=== PATIENT | male | born 1950 | race Caucasian/White ===

== ENCOUNTER 2017-08-17 07:52 | Inpatient (IN) | payer MEDICARE, OTHER ==
[~2017-08-17] VITALS: Ht 177.8 cm; Wt 107.2 kg
[2017-08-17] MEDS ORDERED: morphine SULFATE 10 MG/ML, 1ML ONE ×2 (08:19→09:40)
[2017-08-17] MEDS ORDERED: ONDANSETRON 2MG/ML, 2ML ONE (08:20)
[2017-08-17] MEDS ORDERED: FENTANYL PF 100 MCG/2ML ONE (08:20)
[2017-08-17] MEDS ORDERED: SODIUM CHLORIDE FLUSH 10ML SYR IVF ONE (08:30)
[2017-08-17] MEDS ORDERED: ONDANSETRON 2MG/ML, 2ML IVPush ONE (08:30)
[2017-08-17] MEDS ORDERED: FENTANYL PF 100 MCG/2ML IV ONE (08:30)
[2017-08-17] MEDS: MORPHINE SULFATE 4 MG/ML, 1ML IVPush PRN ×2 (08:59→09:43)
[2017-08-17] MEDS ORDERED: HYDROmorphone 1 MG/ML, 1ML IV ONE (10:30)
[2017-08-17] MEDS ORDERED: SODIUM CHLORIDE FLUSH 10ML SYR IVF PRN (12:00)
[2017-08-17] MEDS ORDERED: ONDANSETRON 2MG/ML, 2ML IVPush PRN ×2 (12:00→13:30)
[2017-08-17] MEDS ORDERED: HYDROmorphone 1 MG/ML, 1ML IVPush PRN (12:00)
[2017-08-17 12:38] VITALS: BP 132/82
[2017-08-17] MEDS ORDERED: ENOXAPARIN 40 MG/0.4 ML SQ SCH (13:30)
[2017-08-17] MEDS ORDERED: TEMAZEPAM 15 MG CAPSULE PO PRN (13:30)
[2017-08-17] MEDS ORDERED: hydrALAzine 20 MG/ML, 1ML IVPush PRN (13:30)
[2017-08-17] MEDS ORDERED: POLYETHYLENE GLYCOL 17 GM PACKET PO PRN (13:30)
[2017-08-17] MEDS ORDERED: morphine SULFATE 10 MG/ML, 1ML IVPush PRN (13:30)
[2017-08-17 14:46] LABS: BLOOD UREA NITROGEN 12 mg/dL (7-18)
[2017-08-17 14:48] LABS: HEMATOCRIT 39.1 % (39.2-51.8); HEMOGLOBIN 13.1 g/dL (13.7-18.0); WHITE BLOOD COUNT 7.3 x10^3/uL (3.4-10)
[2017-08-17 14:54] LABS: ASPARTATE AMINO TRANSFERASE 41 U/L (15-37)
[2017-08-17] MEDS ORDERED: PROMETHAZINE 25 MG/ML, 1ML IM ONE (19:00)
[2017-08-17] MEDS: OXYcodone IR 5MG TABLET PO PRN (19:57)
[2017-08-17 20:03] VITALS: BP 137/83
[2017-08-17] MEDS: RIFAXIMIN 550 MG TABLET PO SCH (21:00)
[2017-08-17] MEDS: MAGNESIUM OXIDE 400 MG TABLET PO SCH (21:00)
[2017-08-18] MEDS: OXYcodone IR 5MG TABLET PO PRN ×5 (01:08→20:39)
[2017-08-18 02:37] VITALS: BP 107/57
[2017-08-18] MEDS: PROPRANOLOL 20 MG TABLET PO SCH (06:23)
[2017-08-18] MEDS: CHOLECALCIFEROL 1,000 UNIT TABLET PO SCH (08:08)
[2017-08-18] MEDS: THIAMINE 100MG TABLET PO SCH (08:08)
[2017-08-18] MEDS: MULTIVITAMIN 1 TABLET PO SCH (08:08)
[2017-08-18] MEDS: FLUOXETINE 10 MG CAP PO SCH (08:08)
[2017-08-18] MEDS: FOLIC ACID 1 MG TABLET PO SCH (08:08)
[2017-08-18] MEDS: RIFAXIMIN 550 MG TABLET PO SCH ×2 (08:08→20:22)
[2017-08-18] MEDS: MAGNESIUM OXIDE 400 MG TABLET PO SCH ×2 (08:08→20:22)
[2017-08-18] MEDS: PANTOPROZOLE 40MG TABLET PO SCH (08:09)
[2017-08-18] MEDS: FUROSEMIDE 40 MG TABLET PO SCH (08:09)
[2017-08-18] MEDS: SPIRONOLACTONE 100 MG TABLET PO SCH (08:09)
[2017-08-18 08:17] VITALS: BP 105/59
[2017-08-18] MEDS ORDERED: LACTULOSE 20 GM/30 ML UDC PO PRN (12:00)
[2017-08-18 14:50] VITALS: BP 119/73
[2017-08-18 20:56] VITALS: BP 113/74
[2017-08-19 03:21] VITALS: BP 114/68
[2017-08-19] MEDS: OXYcodone IR 5MG TABLET PO PRN ×2 (05:54→11:31)
[2017-08-19 06:08] LABS: BLOOD UREA NITROGEN 22 mg/dL (7-18)
[2017-08-19] MEDS: PROPRANOLOL 20 MG TABLET PO SCH (06:50)
[2017-08-19] MEDS: RIFAXIMIN 550 MG TABLET PO SCH (09:04)
[2017-08-19] MEDS: CHOLECALCIFEROL 1,000 UNIT TABLET PO SCH (09:04)
[2017-08-19] MEDS: THIAMINE 100MG TABLET PO SCH (09:04)
[2017-08-19] MEDS: MAGNESIUM OXIDE 400 MG TABLET PO SCH (09:04)
[2017-08-19] MEDS: MULTIVITAMIN 1 TABLET PO SCH (09:04)
[2017-08-19] MEDS: SPIRONOLACTONE 100 MG TABLET PO SCH (09:05)
[2017-08-19] MEDS: FLUOXETINE 10 MG CAP PO SCH (09:05)
[2017-08-19] MEDS: FUROSEMIDE 40 MG TABLET PO SCH (09:05)
[2017-08-19] MEDS: PANTOPROZOLE 40MG TABLET PO SCH (09:06)
[2017-08-19] MEDS: FOLIC ACID 1 MG TABLET PO SCH (09:06)
[2017-08-19 09:21] VITALS: BP 103/67
[2017-08-19] MEDS ORDERED: CHOL10003 PO (10:01)
[2017-08-19] MEDS ORDERED: RIFA550T4 PO (10:13)
[2017-08-19] MEDS ORDERED: FOLI-17 PO (10:13)
[2017-08-19] MEDS ORDERED: PROP20TA PO (10:13)
[2017-08-19] MEDS ORDERED: OXYC5TAB3 PO (10:13)
[2017-08-19] MEDS ORDERED: SPIR100T PO (10:13)
[2017-08-19] MEDS ORDERED: PANT40TA5 PO (10:13)
[2017-08-19] MEDS ORDERED: THIA100T6 PO (10:13)
[2017-08-19] MEDS ORDERED: MAGN400T26 PO (10:13)
[2017-08-19] MEDS ORDERED: TRAM50TA2 PO (10:13)
[2017-08-19] MEDS ORDERED: FURO40TA6 PO (10:13)
[2017-08-19] MEDS ORDERED: FLUO10CA7 PO (10:13)
[2017-08-19] MEDS ORDERED: LACT20SO13 PO (10:13)
[2017-08-19] MEDS ORDERED: MULT1TAB60 PO (10:13)
[2017-08-19] MEDS ORDERED: ERGO2000 PO (10:14)
[2017-08-19 13:56] VITALS: BP 109/68
== END 2017-08-19 14:32 | disposition home or self-care (01) | DRG 562 ==
LOC: ED 08:56 → EDIP 11:38 → 4NOR 12:30 → DCLOUNGE 08-19 14:10
PROVIDERS: ADMIT Hospitalist; ATTEND Internal Medicine
DX: S42.211A Unspecified displaced fracture of surgical neck of right humerus, initial encounter for closed fracture (principal); E43 Unspecified severe protein-calorie malnutrition; R71.0 Precipitous drop in hematocrit; K70.30 Alcoholic cirrhosis of liver without ascites
CPT/HCPCS: 36415; 80048; 80053; 84439; 84443; 85025; 96374; 96375; 96376; J2405; J2550; J3010

== ENCOUNTER 2017-08-28 06:38 | Emergency (ER) | payer MEDICARE, OTHER ==
[~2017-08-28] VITALS: Ht 177.8 cm; Wt 100.8 kg
[~2017-08-28 06:38] MED LIST: CHOL10003 PO; ERGO2000 PO; FLUO10CA7 PO; FOLI-17 PO; FURO40TA6 PO; LACT20SO13 PO; MAGN400T26 PO; MULT1TAB60 PO; OXYC5TAB3 PO; PANT40TA5 PO; PROP20TA PO; RIFA550T4 PO; SPIR100T PO; THIA100T6 PO; TRAM50TA2 PO
[2017-08-28] MEDS ORDERED: KETOROLAC 30 MG/1 ML ONE (06:53)
[2017-08-28] MEDS ORDERED: KETOROLAC 30 MG/1 ML IVPush ONE (07:00)
[2017-08-28 08:42] VITALS: BP 135/81
== END 2017-08-28 08:47 | disposition home or self-care (01) ==
LOC: ED 07:34
DX: S42.201A Unspecified fracture of upper end of right humerus, initial encounter for closed fracture (principal); S16.1XXA Strain of muscle, fascia and tendon at neck level, initial encounter; M47.892 Other spondylosis, cervical region; W19.XXXA Unspecified fall, initial encounter; Y93.89 Activity, other specified; Y92.009 Unspecified place in unspecified non-institutional (private) residence as the place of occurrence of the external cause; Y99.9 Unspecified external cause status
CPT/HCPCS: 72125; 73060; 96374; 99284; J1885

== ENCOUNTER 2017-08-29 06:38 | Inpatient (IN) | payer OTHER ==
[~2017-08-29] VITALS: Ht 177.8 cm; Wt 123.2 kg
[2017-08-29] MEDS ORDERED: SODIUM CHLORIDE FLUSH 10ML SYR IVF ONE (07:00)
[2017-08-29] MEDS ORDERED: ONDANSETRON 2MG/ML, 2ML IVPush ONE (07:00)
[2017-08-29] MEDS ORDERED: HYDROmorphone 1 MG/ML, 1ML ONE (07:18)
[2017-08-29] MEDS ORDERED: ONDANSETRON 2MG/ML, 2ML ONE (07:18)
[2017-08-29] MEDS: HYDROmorphone 1 MG/ML, 1ML IVPush PRN ×2 (07:37→09:07)
[2017-08-29 07:57] LABS: BLOOD UREA NITROGEN 18 mg/dL (7-18); HEMATOCRIT 34.2 % (39.2-51.8); HEMOGLOBIN 11.8 g/dL (13.7-18.0); WHITE BLOOD COUNT 9.4 x10^3/uL (3.4-10)
[2017-08-29] MEDS ORDERED: HYDROmorphone 1 MG/ML, 1ML IVPush PRN (10:00)
[2017-08-29] MEDS ORDERED: SODIUM CHLORIDE FLUSH 10ML SYR IVF PRN (10:00)
[2017-08-29] MEDS ORDERED: ONDANSETRON 2MG/ML, 2ML IVPush PRN ×2 (10:00→11:30)
[2017-08-29 10:45] VITALS: BP 98/60
[2017-08-29] MEDS: OXYcodone IR 5MG TABLET PO PRN ×3 (11:58→20:19)
[2017-08-29] MEDS: SODIUM CHLORIDE 0.9% 1,000 ML IV SCH ×2 (11:58→18:35)
[2017-08-29 13:26] VITALS: BP 122/67
[2017-08-29] MEDS: LACTULOSE 20 GM/30 ML UDC PO PRN (15:58)
[2017-08-29 18:55] VITALS: BP 106/65
[2017-08-29] MEDS: RIFAXIMIN 550 MG TABLET PO SCH (20:19)
[2017-08-29] MEDS: MAGNESIUM OXIDE 400 MG TABLET PO SCH (20:20)
[2017-08-29] MEDS: ENOXAPARIN 40 MG/0.4 ML SQ SCH (20:22)
[2017-08-30 01:46] VITALS: BP 110/68
[2017-08-30] MEDS: SODIUM CHLORIDE 0.9% 1,000 ML IV SCH (03:35)
[2017-08-30 05:00] LABS: BLOOD UREA NITROGEN 20 mg/dL (7-18)
[2017-08-30] MEDS: OXYcodone IR 5MG TABLET PO PRN ×4 (05:58→23:04)
[2017-08-30] MEDS: PROPRANOLOL 20 MG TABLET PO SCH (05:59)
[2017-08-30] MEDS: SPIRONOLACTONE 100 MG TABLET PO SCH (07:49)
[2017-08-30] MEDS: PANTOPROZOLE 40MG TABLET PO SCH (07:49)
[2017-08-30] MEDS: FLUOXETINE 10 MG CAP PO SCH (07:50)
[2017-08-30] MEDS: RIFAXIMIN 550 MG TABLET PO SCH ×2 (07:50→21:26)
[2017-08-30] MEDS: MAGNESIUM OXIDE 400 MG TABLET PO SCH ×2 (07:50→21:26)
[2017-08-30 08:22] VITALS: BP 100/64
[2017-08-30] MEDS ORDERED: SODIUM CHLORIDE 0.9% 1,000 ML IV SCH (11:29)
[2017-08-30] MEDS ORDERED: MAGNESIUM SULFATE PMX 2GM/50ML 50 ML IV ONE (11:30)
[2017-08-30] MEDS: LACTULOSE 20 GM/30 ML UDC PO PRN (11:59)
[2017-08-30 15:07] VITALS: BP 145/66
[2017-08-30 19:53] VITALS: BP 99/63
[2017-08-30] MEDS: ENOXAPARIN 40 MG/0.4 ML SQ SCH (21:26)
[2017-08-31 02:17] VITALS: BP 91/51
[2017-08-31] MEDS: PROPRANOLOL 20 MG TABLET PO SCH (04:45)
[2017-08-31 06:15] LABS: BLOOD UREA NITROGEN 16 mg/dL (7-18)
[2017-08-31 07:25] VITALS: BP 114/73
[2017-08-31] MEDS: OXYcodone IR 5MG TABLET PO PRN ×2 (07:34→15:54)
[2017-08-31] MEDS: RIFAXIMIN 550 MG TABLET PO SCH ×2 (07:35→21:45)
[2017-08-31] MEDS: MAGNESIUM OXIDE 400 MG TABLET PO SCH ×2 (07:35→21:44)
[2017-08-31] MEDS: FLUOXETINE 10 MG CAP PO SCH (07:35)
[2017-08-31] MEDS: PANTOPROZOLE 40MG TABLET PO SCH (07:35)
[2017-08-31] MEDS: SPIRONOLACTONE 100 MG TABLET PO SCH (07:35)
[2017-08-31] MEDS: SODIUM CHLORIDE 0.9% 1,000 ML IV SCH ×2 (11:16→19:40)
[2017-08-31 13:27] VITALS: BP 159/74
[2017-08-31] MEDS: LACTULOSE 20 GM/30 ML UDC PO SCH ×2 (16:28→21:44)
[2017-08-31 19:58] VITALS: BP 115/73
[2017-08-31] MEDS: ENOXAPARIN 40 MG/0.4 ML SQ SCH (21:45)
[2017-09-01] MEDS: OXYcodone IR 5MG TABLET PO PRN ×4 (00:22→17:39)
[2017-09-01 02:34] VITALS: BP 110/69
[2017-09-01] MEDS: PROPRANOLOL 20 MG TABLET PO SCH (05:53)
[2017-09-01 07:00] VITALS: BP 108/73
[2017-09-01] MEDS: SODIUM CHLORIDE 0.9% 1,000 ML IV SCH ×2 (09:00→17:30)
[2017-09-01] MEDS: SPIRONOLACTONE 100 MG TABLET PO SCH (10:08)
[2017-09-01] MEDS: FLUOXETINE 10 MG CAP PO SCH (10:08)
[2017-09-01] MEDS: LACTULOSE 20 GM/30 ML UDC PO SCH ×2 (10:08→20:16)
[2017-09-01] MEDS: RIFAXIMIN 550 MG TABLET PO SCH ×2 (10:08→20:16)
[2017-09-01] MEDS: PANTOPROZOLE 40MG TABLET PO SCH (10:08)
[2017-09-01] MEDS: MAGNESIUM OXIDE 400 MG TABLET PO SCH ×2 (10:09→20:16)
[2017-09-01 13:44] VITALS: BP 110/69
[2017-09-01 20:04] VITALS: BP 129/84
[2017-09-01] MEDS: ENOXAPARIN 40 MG/0.4 ML SQ SCH (20:17)
[2017-09-02] MEDS: OXYcodone IR 5MG TABLET PO PRN ×2 (00:42→06:13)
[2017-09-02] MEDS: SODIUM CHLORIDE 0.9% 1,000 ML IV SCH ×3 (00:51→17:14)
[2017-09-02 01:40] VITALS: BP 108/70
[2017-09-02] MEDS: PROPRANOLOL 20 MG TABLET PO SCH (06:12)
[2017-09-02] MEDS: PANTOPROZOLE 40MG TABLET PO SCH (07:30)
[2017-09-02 07:38] VITALS: BP 106/64
[2017-09-02] MEDS: LACTULOSE 20 GM/30 ML UDC PO SCH ×2 (11:09→20:50)
[2017-09-02] MEDS: SPIRONOLACTONE 100 MG TABLET PO SCH (14:15)
[2017-09-02] MEDS: FLUOXETINE 10 MG CAP PO SCH (14:15)
[2017-09-02] MEDS: RIFAXIMIN 550 MG TABLET PO SCH ×2 (14:15→20:51)
[2017-09-02] MEDS: MAGNESIUM OXIDE 400 MG TABLET PO SCH ×2 (14:15→20:50)
[2017-09-02 14:41] VITALS: BP 107/68
[2017-09-02 20:17] VITALS: BP 93/52
[2017-09-02] MEDS: QUETIAPINE 25MG TABLET PO SCH ×2 (20:50→21:00)
[2017-09-02] MEDS: ENOXAPARIN 40 MG/0.4 ML SQ SCH (20:51)
[2017-09-02] MEDS ORDERED: HALOPERIDOL 5 MG/ML ONE (23:40)
[2017-09-03] MEDS ORDERED: HALOPERIDOL 5 MG/ML IM PRN
[2017-09-03] MEDS: SODIUM CHLORIDE 0.9% 1,000 ML IV SCH ×3 (01:00→23:54)
[2017-09-03] MEDS: PROPRANOLOL 20 MG TABLET PO SCH (06:22)
[2017-09-03 08:10] VITALS: BP 107/67
[2017-09-03] MEDS: LACTULOSE 20 GM/30 ML UDC PO SCH ×3 (08:18→21:39)
[2017-09-03] MEDS: MAGNESIUM OXIDE 400 MG TABLET PO SCH ×2 (08:19→20:18)
[2017-09-03] MEDS: PANTOPROZOLE 40MG TABLET PO SCH (08:21)
[2017-09-03] MEDS: SPIRONOLACTONE 100 MG TABLET PO SCH (08:21)
[2017-09-03] MEDS: FLUOXETINE 10 MG CAP PO SCH (08:21)
[2017-09-03] MEDS: QUETIAPINE 25MG TABLET PO SCH ×2 (13:40→20:18)
[2017-09-03] MEDS: RIFAXIMIN 550 MG TABLET PO SCH ×2 (13:40→20:18)
[2017-09-03 14:02] VITALS: BP 99/62
[2017-09-03] MEDS: ENOXAPARIN 40 MG/0.4 ML SQ SCH (20:19)
[2017-09-03] MEDS ORDERED: ZIPRASIDONE 20 MG INJ IM ONE (20:30)
[2017-09-03] MEDS ORDERED: ZIPRASIDONE 20 MG INJ IM PRN (22:00)
[2017-09-04] MEDS: PROPRANOLOL 20 MG TABLET PO SCH (06:07)
[2017-09-04] MEDS: PANTOPROZOLE 40MG TABLET PO SCH ×2 (07:30→09:16)
[2017-09-04] MEDS: SODIUM CHLORIDE 0.9% 1,000 ML IV SCH ×2 (08:00→16:00)
[2017-09-04] MEDS: RIFAXIMIN 550 MG TABLET PO SCH ×4 (09:00→21:00)
[2017-09-04] MEDS: QUETIAPINE 25MG TABLET PO SCH ×4 (09:00→21:00)
[2017-09-04] MEDS: SPIRONOLACTONE 100 MG TABLET PO SCH (09:16)
[2017-09-04] MEDS: FLUOXETINE 10 MG CAP PO SCH (09:16)
[2017-09-04] MEDS: MAGNESIUM OXIDE 400 MG TABLET PO SCH ×2 (09:16→21:00)
[2017-09-04] MEDS: LACTULOSE 20 GM/30 ML UDC PO SCH ×2 (09:17→21:00)
[2017-09-04 10:35] LABS: ASPARTATE AMINO TRANSFERASE 62 U/L (15-37); BLOOD UREA NITROGEN 10 mg/dL (7-18)
[2017-09-04 14:50] VITALS: BP 109/66
[2017-09-04] MEDS: ENOXAPARIN 40 MG/0.4 ML SQ SCH (21:00)
[2017-09-05] MEDS: PROPRANOLOL 20 MG TABLET PO SCH (05:46)
[2017-09-05] MEDS: PANTOPROZOLE 40MG TABLET PO SCH (07:30)
[2017-09-05] MEDS: SODIUM CHLORIDE 0.9% 1,000 ML IV SCH ×4 (07:41→22:10)
[2017-09-05] MEDS: FLUOXETINE 10 MG CAP PO SCH ×2 (07:44→09:00)
[2017-09-05] MEDS: RIFAXIMIN 550 MG TABLET PO SCH ×2 (07:45→20:17)
[2017-09-05] MEDS: QUETIAPINE 25MG TABLET PO SCH ×2 (07:45→20:17)
[2017-09-05] MEDS: LACTULOSE 20 GM/30 ML UDC PO SCH ×2 (07:45→20:17)
[2017-09-05] MEDS: SPIRONOLACTONE 100 MG TABLET PO SCH (07:45)
[2017-09-05] MEDS: MAGNESIUM OXIDE 400 MG TABLET PO SCH ×2 (07:45→20:17)
[2017-09-05 08:19] VITALS: BP 123/78
[2017-09-05 14:21] VITALS: BP 119/74
[2017-09-05] MEDS: ENOXAPARIN 40 MG/0.4 ML SQ SCH (20:17)
[2017-09-05 21:32] VITALS: BP 144/77
[2017-09-06 02:00] VITALS: BP 124/82
[2017-09-06] MEDS: PROPRANOLOL 20 MG TABLET PO SCH (05:58)
[2017-09-06 07:51] VITALS: BP 130/76
[2017-09-06] MEDS: SODIUM CHLORIDE 0.9% 1,000 ML IV SCH ×2 (08:00→20:21)
[2017-09-06] MEDS: PANTOPROZOLE 40MG TABLET PO SCH (08:22)
[2017-09-06] MEDS: MAGNESIUM OXIDE 400 MG TABLET PO SCH ×2 (08:22→20:21)
[2017-09-06] MEDS: RIFAXIMIN 550 MG TABLET PO SCH ×2 (08:22→20:21)
[2017-09-06] MEDS: LACTULOSE 20 GM/30 ML UDC PO SCH ×2 (08:22→20:21)
[2017-09-06] MEDS: SPIRONOLACTONE 100 MG TABLET PO SCH (08:22)
[2017-09-06] MEDS: QUETIAPINE 25MG TABLET PO SCH ×2 (08:23→20:25)
[2017-09-06] MEDS: FLUOXETINE 10 MG CAP PO SCH (08:23)
[2017-09-06 08:35] LABS: BLOOD UREA NITROGEN 13 mg/dL (7-18)
[2017-09-06 08:40] LABS: ASPARTATE AMINO TRANSFERASE 70 U/L (15-37)
[2017-09-06 14:54] VITALS: BP 118/72
[2017-09-06 19:40] VITALS: BP 131/95
[2017-09-06] MEDS: ENOXAPARIN 40 MG/0.4 ML SQ SCH (20:21)
[2017-09-07] MEDS: SODIUM CHLORIDE 0.9% 1,000 ML IV SCH ×3 (03:35→19:58)
[2017-09-07 05:30] VITALS: BP 93/44
[2017-09-07] MEDS: PROPRANOLOL 20 MG TABLET PO SCH ×2 (05:30→05:37)
[2017-09-07 08:09] VITALS: BP 125/68
[2017-09-07] MEDS: QUETIAPINE 25MG TABLET PO SCH ×2 (08:48→19:58)
[2017-09-07] MEDS: MAGNESIUM OXIDE 400 MG TABLET PO SCH ×2 (09:36→19:58)
[2017-09-07] MEDS: SPIRONOLACTONE 100 MG TABLET PO SCH (09:36)
[2017-09-07] MEDS: FLUOXETINE 10 MG CAP PO SCH (09:37)
[2017-09-07] MEDS: PANTOPROZOLE 40MG TABLET PO SCH (09:37)
[2017-09-07] MEDS: RIFAXIMIN 550 MG TABLET PO SCH ×2 (09:37→19:58)
[2017-09-07] MEDS: LACTULOSE 20 GM/30 ML UDC PO SCH ×2 (09:37→19:58)
[2017-09-07 13:42] VITALS: BP 136/71
[2017-09-07 19:49] VITALS: BP 114/66
[2017-09-07] MEDS: ENOXAPARIN 40 MG/0.4 ML SQ SCH (19:58)
[2017-09-08] MEDS: SODIUM CHLORIDE 0.9% 1,000 ML IV SCH (03:30)
[2017-09-08] MEDS: PROPRANOLOL 20 MG TABLET PO SCH (06:00)
[2017-09-08 07:57] VITALS: BP 117/74
[2017-09-08] MEDS: QUETIAPINE 25MG TABLET PO SCH (10:02)
[2017-09-08] MEDS: MAGNESIUM OXIDE 400 MG TABLET PO SCH (10:06)
[2017-09-08] MEDS: PANTOPROZOLE 40MG TABLET PO SCH (10:06)
[2017-09-08] MEDS: SPIRONOLACTONE 100 MG TABLET PO SCH (10:06)
[2017-09-08] MEDS: LACTULOSE 20 GM/30 ML UDC PO SCH (10:06)
[2017-09-08] MEDS: RIFAXIMIN 550 MG TABLET PO SCH (10:07)
[2017-09-08] MEDS: FLUOXETINE 10 MG CAP PO SCH (10:07)
[2017-09-08] MEDS ORDERED: FUROSEMIDE 80 MG TABLET PO ONE (10:30)
[2017-09-08] MEDS ORDERED: FUROSEMIDE 40 MG/4 ML IV ONE (10:30)
[2017-09-08] MEDS ORDERED: FUROSEMIDE 40 MG TABLET ONE (11:04)
[2017-09-08] MEDS ORDERED: LACT20SO13 PO ×2 (12:49→13:03)
[2017-09-08 14:10] VITALS: BP 120/72
== END 2017-09-08 16:19 | DRG 441 ==
LOC: ED 08:21 → EDIP 09:34 → 3NW 10:53
PROVIDERS: ADMIT Internal Medicine; ATTEND Internal Medicine
DX: K72.90 Hepatic failure, unspecified without coma (principal); N17.0 Acute kidney failure with tubular necrosis; E43 Unspecified severe protein-calorie malnutrition; K70.30 Alcoholic cirrhosis of liver without ascites; K21.9 Gastro-esophageal reflux disease without esophagitis; G89.11 Acute pain due to trauma; Z51.5 Encounter for palliative care; F32.9 Major depressive disorder, single episode, unspecified; M19.90 Unspecified osteoarthritis, unspecified site; M79.601 Pain in right arm; M79.652 Pain in left thigh; R29.6 Repeated falls; Z68.39 Body mass index [BMI] 39.0-39.9, adult; Z91.19 Patient's noncompliance with other medical treatment and regimen
CPT/HCPCS: 36415; 70450; 80048; 80053; 82040; 82140; 83735; 84100; 85025; 85610; 85730; 96374; 96375; 96376; J1170; J1650; J2405; J1630; J3475; J7030

== ENCOUNTER 2017-09-11 23:13 | Inpatient (IN) | payer MEDICARE, OTHER ==
[~2017-09-11] VITALS: Ht 182.9 cm; Wt 106.3 kg
[2017-09-12] MEDS ORDERED: BACLOFEN 10 MG TABLET PO ONE
[2017-09-12 00:27] LABS: HEMATOCRIT 33.7 % (39.2-51.8); HEMOGLOBIN 11.2 g/dL (13.7-18.0)
[2017-09-12 00:37] LABS: ASPARTATE AMINO TRANSFERASE 70 U/L (15-37); BLOOD UREA NITROGEN 26 mg/dL (7-18)
[2017-09-12 00:52] LABS: POLYCHROMASIA 1+
[2017-09-12 00:53] LABS: ROULEAUX 1+
[2017-09-12] MEDS ORDERED: morphine SULFATE 10 MG/ML, 1ML ONE (01:21)
[2017-09-12] MEDS ORDERED: PIPERACILLIN/TAZO/PMX 4.5GM 100 ML IV SCH (01:30)
[2017-09-12] MEDS ORDERED: morphine SULFATE 10 MG/ML, 1ML IVPush ONE (01:30)
[2017-09-12] MEDS ORDERED: SODIUM CHLORIDE 0.9% 1,000 ML IV SCH (02:46)
[2017-09-12] MEDS ORDERED: hydrALAzine 20 MG/ML, 1ML IVPush PRN (03:00)
[2017-09-12] MEDS: LACTULOSE 10 GM/15 ML UDC PO SCH ×4 (03:00→22:45)
[2017-09-12] MEDS ORDERED: LORazepam 2 MG/ML, 1ML IVPush PRN (03:00)
[2017-09-12] MEDS ORDERED: ACETAMINOPHEN 325 MG TABLET PO PRN (03:00)
[2017-09-12 03:56] VITALS: BP 111/65
[2017-09-12 06:00] VITALS: BP 106/53
[2017-09-12] MEDS: ALBUTEROL SULFATE 2.5 MG/3 ML NPPB PRN (06:17)
[2017-09-12] MEDS: ENOXAPARIN 40 MG/0.4 ML SQ SCH (06:21)
[2017-09-12] MEDS: PIPERACILLIN/TAZO/PMX 3.375GM 50 ML IV SCH ×4 (06:36→20:25)
[2017-09-12 07:36] LABS: ABG COLLECTION SITE LEFT BRACHIAL
[2017-09-12] MEDS: PROPRANOLOL 20 MG TABLET PO SCH (08:00)
[2017-09-12] MEDS ORDERED: BUMETANIDE 0.25 MG/ML, 4ML IV SCH (08:00)
[2017-09-12 08:01] VITALS: BP 98/56
[2017-09-12] MEDS: MULTIVITAMIN 1 TABLET PO SCH (09:00)
[2017-09-12] MEDS: THIAMINE 100MG TABLET PO SCH (09:00)
[2017-09-12] MEDS: FOLIC ACID 1 MG TABLET PO SCH (09:00)
[2017-09-12] MEDS: SPIRONOLACTONE 100 MG TABLET PO SCH (09:00)
[2017-09-12] MEDS: MAGNESIUM OXIDE 400 MG TABLET PO SCH ×2 (09:00→20:25)
[2017-09-12] MEDS ORDERED: LIDOCAINE 1%, 20ML ONE (09:14)
[2017-09-12 10:00] LABS: HEMATOCRIT 31.5 % (39.2-51.8); HEMOGLOBIN 10.7 g/dL (13.7-18.0); WHITE BLOOD COUNT 11.2 x10^3/uL (3.4-10)
[2017-09-12] MEDS: ALBUMIN HUMAN 25% 50 ML IV SCH ×2 (10:19→16:28)
[2017-09-12] MEDS: FUROSEMIDE 40 MG/4 ML IV SCH ×2 (12:18→17:20)
[2017-09-12] MEDS: RIFAXIMIN 550 MG TABLET PO SCH ×2 (12:22→20:25)
[2017-09-12] MEDS: MIDODRINE 5 MG TABLET PO SCH ×3 (13:00→20:25)
[2017-09-12 13:03] LABS: BLOOD UREA NITROGEN 30 mg/dL (7-18)
[2017-09-12 13:14] LABS: ASPARTATE AMINO TRANSFERASE 105 U/L (15-37)
[2017-09-12] MEDS: ZIPRASIDONE 20 MG INJ IM PRN ×2 (13:15→20:25)
[2017-09-13] MEDS: ZIPRASIDONE 20 MG INJ IM PRN (00:09)
[2017-09-13] MEDS: ALBUMIN HUMAN 25% 50 ML IV SCH (00:10)
[2017-09-13] MEDS ORDERED: DEXMEDETOMIDINE 200 MCG in SODIUM CHLORIDE 0.9% 48 ML IV PRN (00:30)
[2017-09-13] MEDS ORDERED: LORazepam 2 MG/ML, 1ML ONE (00:36)
[2017-09-13] MEDS ORDERED: LORazepam 2 MG/ML, 1ML IVPush ONE (01:00)
[2017-09-13] MEDS: FUROSEMIDE 40 MG/4 ML IV SCH ×2 (01:26→10:13)
[2017-09-13] MEDS: PIPERACILLIN/TAZO/PMX 3.375GM 50 ML IV SCH ×4 (04:31→21:03)
[2017-09-13] MEDS: ENOXAPARIN 40 MG/0.4 ML SQ SCH (04:31)
[2017-09-13 04:42] VITALS: BP 127/84
[2017-09-13 04:50] LABS: ABG COLLECTION SITE LEFT RADIAL; COLLATERAL CIRCULATION TESTING NORMAL
[2017-09-13 05:04] LABS: ASPARTATE AMINO TRANSFERASE 53 U/L (15-37); BLOOD UREA NITROGEN 31 mg/dL (7-18)
[2017-09-13 05:11] LABS: HEMATOCRIT 30.9 % (39.2-51.8); HEMOGLOBIN 10.3 g/dL (13.7-18.0); WHITE BLOOD COUNT 10.8 x10^3/uL (3.4-10)
[2017-09-13] MEDS: PROPRANOLOL 20 MG TABLET PO SCH (06:00)
[2017-09-13] MEDS: LACTULOSE 10 GM/15 ML UDC PO SCH ×3 (09:00→21:00)
[2017-09-13] MEDS: ALBUTEROL SULFATE 2.5 MG/3 ML NPPB PRN (09:13)
[2017-09-13] MEDS ORDERED: ALBUTEROL/IPRATROPIUM 2.5MG/0.5MG, 3 ML ONE (09:41)
[2017-09-13] MEDS ORDERED: SENNOSIDES 8.8 MG/5 ML ORAL SOL NG PRN (10:00)
[2017-09-13] MEDS ORDERED: PHARMACY MAY ADJ FOR RENAL FX MC SCH (10:00)
[2017-09-13] MEDS ORDERED: BISACODYL 10 MG SUPP PR PRN (10:00)
[2017-09-13] MEDS ORDERED: SENNA/DOCUSATE TABLET NG PRN (10:00)
[2017-09-13] MEDS: THIAMINE 100MG TABLET PO SCH (10:14)
[2017-09-13] MEDS: LACTULOSE 20 GM/30 ML UDC NG PRN ×4 (10:14→21:05)
[2017-09-13] MEDS: MULTIVITAMIN 1 TABLET PO SCH (10:14)
[2017-09-13] MEDS: SPIRONOLACTONE 100 MG TABLET PO SCH (10:14)
[2017-09-13] MEDS: MIDODRINE 5 MG TABLET PO SCH ×3 (10:14→21:03)
[2017-09-13] MEDS: FOLIC ACID 1 MG TABLET PO SCH (10:14)
[2017-09-13] MEDS: MAGNESIUM OXIDE 400 MG TABLET PO SCH ×2 (10:14→21:07)
[2017-09-13] MEDS: RIFAXIMIN 550 MG TABLET PO SCH ×2 (10:15→21:04)
[2017-09-13 10:18] LABS: ABG COLLECTION SITE LEFT RADIAL; COLLATERAL CIRCULATION TESTING NOT DOCUMENTED
[2017-09-13] MEDS: FAMOTIDINE 20 MG/2 ML IV SCH ×2 (10:18→21:04)
[2017-09-13] MEDS: ALBUTEROL/IPRATROPIUM 2.5MG/0.5MG, 3 ML INLINE SCH ×4 (11:10→23:15)
[2017-09-13] MEDS ORDERED: PROPOFOL 10 MG/ML, 20ML ONE (11:22)
[2017-09-13] MEDS ORDERED: MIDAZOLAM 1 MG/ML, 5ML ONE (11:22)
[2017-09-13] MEDS ORDERED: VECURONIUM 10 MG ONE (11:22)
[2017-09-13] MEDS: FENTANYL PF 100 MCG/2ML IVPush PRN (12:40)
[2017-09-13] MEDS: FUROSEMIDE 100 MG in SODIUM CHLORIDE 0.9% 90 ML IV SCH (14:59)
[2017-09-13] MEDS: ALBUMIN HUMAN 25% 100 ML IV SCH ×2 (14:59→21:03)
[2017-09-13] MEDS: PROPOFOL 100 ML IV PRN ×2 (15:11→22:14)
[2017-09-13] MEDS ORDERED: KSCALE TO 4.0 IV SCH (19:30)
[2017-09-13] MEDS: POTASSIUM CHLORIDE PMX 100 ML IV ONE ×2 (22:00→22:04)
[2017-09-13] MEDS ORDERED: POTASSIUM CHLORIDE 20 MEQ in SODIUM CHLORIDE 0.9% 250 ML IV ONE (22:30)
[2017-09-13] MEDS ORDERED: POTASSIUM CHLORIDE 10 MEQ in SODIUM CHLORIDE 0.9% 250 ML IV ONE ×2 (23:28→23:45)
[2017-09-13] MEDS ORDERED: POTASSIUM CHLORIDE PMX 100 ML IV ONE (23:30)
[2017-09-13] MEDS: [UNRECOGNIZED DRUG - REMARK] IV SCH (23:39)
[2017-09-14] MEDS: PROPOFOL 100 ML IV PRN ×6 (01:37→20:30)
[2017-09-14] MEDS: ENOXAPARIN 40 MG/0.4 ML SQ SCH (02:56)
[2017-09-14] MEDS: PIPERACILLIN/TAZO/PMX 3.375GM 50 ML IV SCH ×4 (02:56→20:31)
[2017-09-14] MEDS: ALBUTEROL/IPRATROPIUM 2.5MG/0.5MG, 3 ML INLINE SCH ×6 (03:20→22:00)
[2017-09-14 04:34] LABS: BLOOD UREA NITROGEN 28 mg/dL (7-18)
[2017-09-14 04:41] LABS: HEMATOCRIT 29.1 % (39.2-51.8); WHITE BLOOD COUNT 12.3 x10^3/uL (3.4-10)
[2017-09-14 04:55] LABS: ABG COLLECTION SITE RIGHT RADIAL; COLLATERAL CIRCULATION TESTING NORMAL
[2017-09-14] MEDS: ALBUMIN HUMAN 25% 100 ML IV SCH ×3 (04:56→21:53)
[2017-09-14] MEDS: [UNRECOGNIZED DRUG - REMARK] IV SCH ×3 (05:00→21:00)
[2017-09-14 05:08] LABS: ASPARTATE AMINO TRANSFERASE 76 U/L (15-37)
[2017-09-14] MEDS: PROPRANOLOL 20 MG TABLET PO SCH (06:00)
[2017-09-14] MEDS: MIDODRINE 5 MG TABLET PO SCH ×3 (07:51→20:30)
[2017-09-14] MEDS: MULTIVITAMIN 1 TABLET PO SCH (07:51)
[2017-09-14] MEDS: THIAMINE 100MG TABLET PO SCH (07:51)
[2017-09-14] MEDS: MAGNESIUM OXIDE 400 MG TABLET PO SCH ×2 (07:51→20:30)
[2017-09-14] MEDS: SPIRONOLACTONE 100 MG TABLET PO SCH (07:52)
[2017-09-14] MEDS: RIFAXIMIN 550 MG TABLET PO SCH ×2 (07:52→20:30)
[2017-09-14] MEDS: FOLIC ACID 1 MG TABLET PO SCH (07:52)
[2017-09-14] MEDS: LACTULOSE 10 GM/15 ML UDC PO SCH ×3 (07:53→20:31)
[2017-09-14] MEDS: FAMOTIDINE 20 MG/2 ML IV SCH ×2 (09:09→21:54)
[2017-09-14] MEDS ORDERED: POTASSIUM CHLORIDE PMX 100 ML IVPB ONE (10:00)
[2017-09-14] MEDS ORDERED: POTASSIUM CHLORIDE 20 MEQ in SODIUM CHLORIDE 0.9% 250 ML IV ONE ×2 (11:00→15:30)
[2017-09-14] MEDS: FUROSEMIDE 100 MG in SODIUM CHLORIDE 0.9% 90 ML IV SCH (13:01)
[2017-09-14] MEDS ORDERED: POTASSIUM CHLORIDE PMX 100 ML IV ONE (14:00)
[2017-09-14] MEDS ORDERED: FUROSEMIDE 100 MG in SODIUM CHLORIDE 0.9% 90 ML IV SCH (14:30)
[2017-09-14] MEDS: LACTULOSE 20 GM/30 ML UDC NG PRN (15:47)
[2017-09-14] MEDS: FENTANYL PF 100 MCG/2ML IVPush PRN (17:19)
[2017-09-14] MEDS ORDERED: SODIUM CHLORIDE 0.9%, 500ML IVBOLUS ONE (23:00)
[2017-09-14] MEDS ORDERED: POTASSIUM CHLORIDE 10 MEQ in SODIUM CHLORIDE 0.9% 250 ML IV ONE (23:00)
[2017-09-15] MEDS: PROPOFOL 100 ML IV PRN ×5 (01:54→21:41)
[2017-09-15] MEDS: ALBUTEROL/IPRATROPIUM 2.5MG/0.5MG, 3 ML INLINE SCH ×6 (02:00→22:30)
[2017-09-15] MEDS ORDERED: POTASSIUM CHLORIDE 20 MEQ in SODIUM CHLORIDE 0.9% 250 ML IV ONE ×2 (02:00→08:00)
[2017-09-15] MEDS: [UNRECOGNIZED DRUG - REMARK] IV SCH ×2 (02:19→08:42)
[2017-09-15] MEDS: ENOXAPARIN 40 MG/0.4 ML SQ SCH (02:19)
[2017-09-15] MEDS: PIPERACILLIN/TAZO/PMX 3.375GM 50 ML IV SCH ×4 (02:19→21:41)
[2017-09-15 04:37] LABS: ABG COLLECTION SITE RIGHT RADIAL; COLLATERAL CIRCULATION TESTING NORMAL
[2017-09-15 04:40] LABS: HEMATOCRIT 27.1 % (39.2-51.8); HEMOGLOBIN 9.3 g/dL (13.7-18.0)
[2017-09-15 04:49] LABS: BLOOD UREA NITROGEN 29 mg/dL (7-18)
[2017-09-15] MEDS: ALBUMIN HUMAN 25% 100 ML IV SCH (05:05)
[2017-09-15] MEDS: PROPRANOLOL 20 MG TABLET PO SCH ×2 (05:52→06:12)
[2017-09-15] MEDS: LACTULOSE 10 GM/15 ML UDC PO SCH ×3 (09:00→21:00)
[2017-09-15] MEDS: MULTIVITAMIN 1 TABLET PO SCH (09:15)
[2017-09-15] MEDS: MAGNESIUM OXIDE 400 MG TABLET PO SCH ×2 (09:15→21:40)
[2017-09-15] MEDS: THIAMINE 100MG TABLET PO SCH (09:15)
[2017-09-15] MEDS: FOLIC ACID 1 MG TABLET PO SCH (09:15)
[2017-09-15] MEDS: SPIRONOLACTONE 100 MG TABLET PO SCH (09:15)
[2017-09-15] MEDS: RIFAXIMIN 550 MG TABLET PO SCH ×2 (09:16→21:40)
[2017-09-15] MEDS: MIDODRINE 5 MG TABLET PO SCH ×3 (09:16→21:40)
[2017-09-15] MEDS: FAMOTIDINE 20 MG/2 ML IV SCH ×2 (10:51→21:40)
[2017-09-15] MEDS: FENTANYL PF 100 MCG/2ML IVPush PRN (15:27)
[2017-09-15 17:39] LABS: PTH INTACT INTERPRETATION ** Comment **
[2017-09-15 18:12] LABS: FERRITIN 763.2 ng/mL (26-388)
[2017-09-15 18:14] LABS: HEP B SURF. AB < 3.1 mIU/mL (0.0-10.0); PARATHYROID HORMONE INTACT 39.3 pg/mL (14-72)
[2017-09-15] MEDS ORDERED: NOREPINEPHRINE 4 MG in SODIUM CHLORIDE 0.9% 246 ML IV PRN (18:30)
[2017-09-15] MEDS: LACTULOSE 20 GM/30 ML UDC NG PRN ×5 (21:40→22:26)
[2017-09-16] MEDS: PROPOFOL 100 ML IV PRN ×5 (01:31→19:28)
[2017-09-16 02:23] LABS: POTASSIUM,URINE RANDOM 66 mmol/L
[2017-09-16] MEDS: ALBUTEROL/IPRATROPIUM 2.5MG/0.5MG, 3 ML INLINE SCH ×6 (02:40→22:10)
[2017-09-16] MEDS: ENOXAPARIN 40 MG/0.4 ML SQ SCH (03:01)
[2017-09-16] MEDS: PIPERACILLIN/TAZO/PMX 3.375GM 50 ML IV SCH ×3 (03:02→15:04)
[2017-09-16] MEDS: FENTANYL PF 100 MCG/2ML IVPush PRN ×2 (04:14→10:27)
[2017-09-16 05:09] LABS: ABG COLLECTION SITE LEFT RADIAL; COLLATERAL CIRCULATION TESTING NORMAL
[2017-09-16 05:11] LABS: HEMATOCRIT 31.3 % (39.2-51.8); HEMOGLOBIN 10.6 g/dL (13.7-18.0)
[2017-09-16 05:24] LABS: BLOOD UREA NITROGEN 43 mg/dL (7-18)
[2017-09-16 05:54] LABS: DIFF TOTAL CELLS COUNTED 100 CELL DIFF
[2017-09-16 06:04] LABS: ANISOCYTOSIS 1+; POLYCHROMASIA 1+; VERIFY COUNTS? YES
[2017-09-16] MEDS ORDERED: NOREPINEPHRINE 1 MG/ML, 4ML ONE (07:45)
[2017-09-16] MEDS: PROPRANOLOL 20 MG TABLET PO SCH (08:24)
[2017-09-16] MEDS: LACTULOSE 20 GM/30 ML UDC NG PRN ×3 (08:25→21:30)
[2017-09-16] MEDS: RIFAXIMIN 550 MG TABLET PO SCH ×2 (08:25→21:31)
[2017-09-16] MEDS: FOLIC ACID 1 MG TABLET PO SCH (08:26)
[2017-09-16] MEDS: MIDODRINE 5 MG TABLET PO SCH ×3 (08:26→21:30)
[2017-09-16] MEDS: MAGNESIUM OXIDE 400 MG TABLET PO SCH ×2 (08:26→21:30)
[2017-09-16] MEDS: MULTIVITAMIN 1 TABLET PO SCH (08:27)
[2017-09-16] MEDS: THIAMINE 100MG TABLET PO SCH (08:27)
[2017-09-16] MEDS: FAMOTIDINE 20 MG/2 ML IV SCH ×2 (08:27→21:32)
[2017-09-16] MEDS ORDERED: VANCOMYCIN PER PHARMACY MC PRN (08:30)
[2017-09-16] MEDS: LACTULOSE 10 GM/15 ML UDC PO SCH ×3 (09:00→21:00)
[2017-09-16] MEDS ORDERED: PHARMACOKINETIC MONITORING MC PRN (09:00)
[2017-09-16] MEDS: SPIRONOLACTONE 100 MG TABLET PO SCH (10:29)
[2017-09-16] MEDS: VANCOMYCIN 2,000 MG in SODIUM CHLORIDE 0.9% 500 ML IV SCH (11:46)
[2017-09-16] MEDS ORDERED: ALBUTEROL SULFATE 2.5 MG/3 ML ONE (14:00)
[2017-09-16] MEDS: PIPERACILLIN/TAZO/PMX 4.5GM 100 ML IV SCH (21:31)
[2017-09-17] MEDS: ALBUTEROL/IPRATROPIUM 2.5MG/0.5MG, 3 ML INLINE SCH ×6 (02:20→22:50)
[2017-09-17] MEDS: ENOXAPARIN 40 MG/0.4 ML SQ SCH (03:22)
[2017-09-17] MEDS: PIPERACILLIN/TAZO/PMX 4.5GM 100 ML IV SCH ×4 (03:22→21:26)
[2017-09-17] MEDS: PROPOFOL 100 ML IV PRN (03:23)
[2017-09-17 04:25] LABS: ABG COLLECTION SITE LEFT RADIAL; COLLATERAL CIRCULATION TESTING NORMAL
[2017-09-17 04:37] LABS: HEMATOCRIT 29.9 % (39.2-51.8); HEMOGLOBIN 10.1 g/dL (13.7-18.0); WHITE BLOOD COUNT 15.8 x10^3/uL (3.4-10)
[2017-09-17 04:42] LABS: BLOOD UREA NITROGEN 50 mg/dL (7-18)
[2017-09-17] MEDS: PROPRANOLOL 20 MG TABLET PO SCH (06:00)
[2017-09-17] MEDS: LACTULOSE 10 GM/15 ML UDC PO SCH ×3 (09:00→21:38)
[2017-09-17] MEDS: LACTULOSE 20 GM/30 ML UDC NG PRN ×3 (09:41→21:26)
[2017-09-17] MEDS: SPIRONOLACTONE 100 MG TABLET PO SCH (09:41)
[2017-09-17] MEDS: RIFAXIMIN 550 MG TABLET PO SCH ×2 (09:41→21:27)
[2017-09-17] MEDS: THIAMINE 100MG TABLET PO SCH (09:41)
[2017-09-17] MEDS: FOLIC ACID 1 MG TABLET PO SCH (09:41)
[2017-09-17] MEDS: MAGNESIUM OXIDE 400 MG TABLET PO SCH ×2 (09:41→21:27)
[2017-09-17] MEDS: MULTIVITAMIN 1 TABLET PO SCH (09:41)
[2017-09-17] MEDS: FAMOTIDINE 20 MG/2 ML IV SCH ×2 (09:42→22:46)
[2017-09-17] MEDS: MIDODRINE 5 MG TABLET PO SCH ×3 (09:42→21:27)
[2017-09-17] MEDS: ALBUMIN HUMAN 25% 100 ML IV SCH ×2 (11:21→22:47)
[2017-09-17] MEDS: OCTREOTIDE 100MCG/ML, 1ML (0.1MG/ML) SQ SCH ×3 (11:21→21:27)
[2017-09-17] MEDS ORDERED: POTASSIUM CHLORIDE 20 MEQ TAB.ER.PRT PO ONE (12:00)
[2017-09-17 12:30] LABS: ASPARTATE AMINO TRANSFERASE 82 U/L (15-37)
[2017-09-17] MEDS: VANCOMYCIN 2,000 MG in SODIUM CHLORIDE 0.9% 500 ML IV SCH (23:23)
[2017-09-18] MEDS: ALBUTEROL/IPRATROPIUM 2.5MG/0.5MG, 3 ML INLINE SCH ×6 (02:20→22:58)
[2017-09-18] MEDS: ENOXAPARIN 40 MG/0.4 ML SQ SCH (03:26)
[2017-09-18] MEDS: PIPERACILLIN/TAZO/PMX 4.5GM 100 ML IV SCH ×4 (03:27→22:15)
[2017-09-18 04:26] LABS: ABG COLLECTION SITE LEFT RADIAL; COLLATERAL CIRCULATION TESTING NORMAL
[2017-09-18 04:54] LABS: HEMATOCRIT 28.3 % (39.2-51.8); HEMOGLOBIN 9.1 g/dL (13.7-18.0); WHITE BLOOD COUNT 14.8 x10^3/uL (3.4-10)
[2017-09-18 05:05] LABS: BLOOD UREA NITROGEN 59 mg/dL (7-18)
[2017-09-18 05:09] LABS: ASPARTATE AMINO TRANSFERASE 65 U/L (15-37)
[2017-09-18] MEDS: PROPRANOLOL 20 MG TABLET PO SCH (06:18)
[2017-09-18] MEDS: LACTULOSE 10 GM/15 ML UDC PO SCH ×3 (09:00→20:30)
[2017-09-18] MEDS: LACTULOSE 20 GM/30 ML UDC NG PRN ×2 (10:33→10:34)
[2017-09-18] MEDS: MULTIVITAMIN 1 TABLET PO SCH (10:33)
[2017-09-18] MEDS: MIDODRINE 5 MG TABLET PO SCH ×3 (10:33→20:44)
[2017-09-18] MEDS: THIAMINE 100MG TABLET PO SCH (10:33)
[2017-09-18] MEDS: MAGNESIUM OXIDE 400 MG TABLET PO SCH ×2 (10:33→20:44)
[2017-09-18] MEDS: FAMOTIDINE 20 MG/2 ML IV SCH ×2 (10:33→22:15)
[2017-09-18] MEDS: ALBUMIN HUMAN 25% 100 ML IV SCH ×2 (10:33→23:16)
[2017-09-18] MEDS: RIFAXIMIN 550 MG TABLET PO SCH ×2 (10:33→20:45)
[2017-09-18] MEDS: FOLIC ACID 1 MG TABLET PO SCH (10:33)
[2017-09-18] MEDS: OCTREOTIDE 100MCG/ML, 1ML (0.1MG/ML) SQ SCH ×3 (10:34→20:45)
[2017-09-19] MEDS: ALBUTEROL/IPRATROPIUM 2.5MG/0.5MG, 3 ML INLINE SCH ×6 (02:35→22:29)
[2017-09-19] MEDS: ENOXAPARIN 40 MG/0.4 ML SQ SCH (03:09)
[2017-09-19] MEDS: PIPERACILLIN/TAZO/PMX 4.5GM 100 ML IV SCH ×4 (04:19→21:14)
[2017-09-19 04:42] LABS: ABG COLLECTION SITE LEFT RADIAL; COLLATERAL CIRCULATION TESTING NORMAL; HEMATOCRIT 27.3 % (39.2-51.8); HEMOGLOBIN 9.2 g/dL (13.7-18.0); WHITE BLOOD COUNT 12.5 x10^3/uL (3.4-10)
[2017-09-19 04:49] LABS: BLOOD UREA NITROGEN 63 mg/dL (7-18)
[2017-09-19] MEDS: PROPRANOLOL 20 MG TABLET PO SCH (06:16)
[2017-09-19] MEDS: RIFAXIMIN 550 MG TABLET PO SCH ×2 (08:08→21:11)
[2017-09-19] MEDS: MIDODRINE 5 MG TABLET PO SCH ×3 (08:08→21:11)
[2017-09-19] MEDS: LACTULOSE 20 GM/30 ML UDC NG PRN ×3 (08:08→21:11)
[2017-09-19] MEDS: THIAMINE 100MG TABLET PO SCH (08:09)
[2017-09-19] MEDS: FOLIC ACID 1 MG TABLET PO SCH (08:09)
[2017-09-19] MEDS: MAGNESIUM OXIDE 400 MG TABLET PO SCH (08:09)
[2017-09-19] MEDS: MULTIVITAMIN 1 TABLET PO SCH (08:09)
[2017-09-19] MEDS: LACTULOSE 10 GM/15 ML UDC PO SCH ×3 (08:14→21:00)
[2017-09-19] MEDS: OCTREOTIDE 100MCG/ML, 1ML (0.1MG/ML) SQ SCH ×3 (08:14→21:12)
[2017-09-19] MEDS: FAMOTIDINE 20 MG/2 ML IV SCH ×2 (10:03→21:14)
[2017-09-19] MEDS: ALBUMIN HUMAN 25% 100 ML IV SCH ×2 (11:10→21:14)
[2017-09-19] MEDS: LIDOCAINE-MPF 1%, 2ML ENDO PRN (22:29)
[2017-09-20] MEDS: ALBUTEROL/IPRATROPIUM 2.5MG/0.5MG, 3 ML INLINE SCH ×4 (02:00→14:25)
[2017-09-20] MEDS: PIPERACILLIN/TAZO/PMX 4.5GM 100 ML IV SCH ×3 (03:50→15:09)
[2017-09-20] MEDS: ENOXAPARIN 40 MG/0.4 ML SQ SCH (03:51)
[2017-09-20 04:26] LABS: ABG COLLECTION SITE LEFT RADIAL; COLLATERAL CIRCULATION TESTING NORMAL
[2017-09-20 05:14] LABS: BLOOD UREA NITROGEN 51 mg/dL (7-18)
[2017-09-20 05:19] LABS: HEMOGLOBIN 9.5 g/dL (13.7-18.0); WHITE BLOOD COUNT 13.3 x10^3/uL (3.4-10)
[2017-09-20] MEDS: THIAMINE 100MG TABLET PO SCH (07:39)
[2017-09-20] MEDS: MIDODRINE 5 MG TABLET PO SCH ×2 (07:40→15:10)
[2017-09-20] MEDS: PROPRANOLOL 20 MG TABLET PO SCH (07:40)
[2017-09-20] MEDS: FOLIC ACID 1 MG TABLET PO SCH (07:40)
[2017-09-20] MEDS: RIFAXIMIN 550 MG TABLET PO SCH (07:40)
[2017-09-20] MEDS: MULTIVITAMIN 1 TABLET PO SCH (07:40)
[2017-09-20] MEDS: OCTREOTIDE 100MCG/ML, 1ML (0.1MG/ML) SQ SCH ×2 (07:41→15:10)
[2017-09-20] MEDS: LACTULOSE 10 GM/15 ML UDC PO SCH ×2 (07:44→15:10)
[2017-09-20] MEDS: ALBUMIN HUMAN 25% 100 ML IV SCH (08:52)
[2017-09-20] MEDS: FAMOTIDINE 20 MG/2 ML IV SCH (08:52)
[2017-09-20] MEDS: LIDOCAINE-MPF 1%, 2ML ENDO PRN (13:04)
[2017-09-20] MEDS ORDERED: LORazepam 2 MG/ML, 1ML IV PRN (19:00)
[2017-09-20] MEDS ORDERED: ATROPINE OPHTH SOLN 1%, 2ML PO PRN (19:00)
[2017-09-20] MEDS ORDERED: LORazepam 2 MG/ML, 1ML IV ONE (19:00)
[2017-09-20] MEDS ORDERED: morphine SULFATE 10 MG/ML, 1ML IV ONE (19:00)
== END 2017-09-21 05:40 | disposition expired | DRG 870 ==
LOC: ED 23:38 → SUATTDRO 09-12 02:29 → EDIP 09-12 02:54 → 4NOR 09-12 03:40 → 4EST 09-12 06:07 → ICU 09-12 08:19 → 3NW 09-20 20:06
PROVIDERS: ADMIT Hospitalist; ATTEND Hospitalist
PROC: 0T9B70Z Drainage of Bladder with Drainage Device, Via Natural or Artificial Opening (ICD-10-PCS; 2017-09-12)
PROC: 5A1955Z Respiratory Ventilation, Greater than 96 Consecutive Hours (ICD-10-PCS; principal; 2017-09-13)
PROC: 0BH17EZ Insertion of Endotracheal Airway into Trachea, Via Natural or Artificial Opening (ICD-10-PCS; 2017-09-13)
PROC: 02HV33Z Insertion of Infusion Device into Superior Vena Cava, Percutaneous Approach (ICD-10-PCS; 2017-09-15)
PROC: B548ZZA Ultrasonography of Superior Vena Cava, Guidance (ICD-10-PCS; 2017-09-15)
DX: A41.9 Sepsis, unspecified organism (principal); K72.00 Acute and subacute hepatic failure without coma; K76.7 Hepatorenal syndrome; E43 Unspecified severe protein-calorie malnutrition; J81.0 Acute pulmonary edema; G93.41 Metabolic encephalopathy; J96.00 Acute respiratory failure, unspecified whether with hypoxia or hypercapnia; J18.9 Pneumonia, unspecified organism; Z99.11 Dependence on respirator [ventilator] status; E87.0 Hyperosmolality and hypernatremia; J90 Pleural effusion, not elsewhere classified; D68.9 Coagulation defect, unspecified; N17.9 Acute kidney failure, unspecified; S42.211A Unspecified displaced fracture of surgical neck of right humerus, initial encounter for closed fracture; Z66 Do not resuscitate; K70.30 Alcoholic cirrhosis of liver without ascites; E87.70 Fluid overload, unspecified; F10.21 Alcohol dependence, in remission; F32.9 Major depressive disorder, single episode, unspecified; K21.9 Gastro-esophageal reflux disease without esophagitis; K70.9 Alcoholic liver disease, unspecified; Z51.5 Encounter for palliative care
CPT/HCPCS: 36415; 36569; 36600; 70450; 71010; 76700; 76770; 76937; 77001; 80048; 80053; 80202; 81001; 82140; 82306; 82310; 82330; 82436; 82533; 82570; 82728; 82803; 82805; 83540; 83550; 83605; 83690; 83735; 83970; 84100; 84132; 84133; 84156; 84300; 84478; 85025; 85045; 85610; 86704; 86706; 87040; 87070; 87081; 87205; 87340; 93005; 93306; 94002; 94003; 94640; 96365; 96375; J1650; J1940; J2250; J2354; J2543; J2704; J3010; J3370; J3480; J3486; J3490; J7060; J7613; J7620; P9047; C1751; J1642; J2060; J2270; J7030; J7040; J7050; S0028